=== PATIENT | male | born 1980 | race Caucasian/White ===

== ENCOUNTER 2017-09-28 14:28 | Outpatient (CLI) | payer MEDICARE | END 2017-09-28 14:29 | disposition home or self-care (01) | LOC: BICRAD 14:28 | PROVIDERS: ATTEND Physician Assistant Medical | DX: M79.671 Pain in right foot (principal) ==

== ENCOUNTER 2018-10-31 12:45 | Emergency (ER) | payer MEDICARE ==
--- NOTE | 2018-10-31 13:25 | CT ---
CT BRAIN WITHOUT CONTRAST: Date: 10/31/18 HISTORY: Level I stroke alert. Right-sided facial paralysis. FINDINGS: No evidence of infarct, hemorrhage, midline shift, or abnormal extra-axial fluid collections are seen . There is asymmetric prominence of the right lateral ventricle compared to the left. The basilar cis terns are patent. The bony calvarium is intact. The visualized paranasal sinuses and mastoid air cell s are well aerated. IMPRESSION: No CT evidence of acute intracranial process. Discussed over the phone with ER physician, Dr. Rhys Borrero, at 1303 hours. CODE CR. POS: [facility]
== END 2018-10-31 13:23 | disposition home or self-care (01) ==
LOC: ERS 12:45
DX: G51.0 Bell's palsy (principal); J45.909 Unspecified asthma, uncomplicated; Z79.899 Other long term (current) drug therapy
CPT/HCPCS: 36416; 70450

== ENCOUNTER 2019-05-14 11:48 | Emergency (ER) | payer MEDICARE ==
[2019-05-14] MEDS ORDERED: Adacel (T-DAP) 0.5 ML SYRINGE ONE (12:28)
--- NOTE | 2019-05-14 13:29 | RAD ---
RIGHT HAND 3 VIEWS: HISTORY: Dog bite. FINDINGS: There is a fracture which his essentially nondisplaced involving the more proximal aspect of the shaf t of the proximal phalanx of the middle finger. The fracture has a slightly impacted component which is probably the bite injury and fracture lines extend from the base through the proximal portion of the shaft. IMPRESSION: Proximal phalanx middle finger fracture. POS: [facility]
[2019-05-14] MEDS ORDERED: Bacitracin 1 PK ONE (14:14)
== END 2019-05-14 14:29 | disposition home or self-care (01) ==
LOC: ERS 11:48
DX: S62.642B Nondisplaced fracture of proximal phalanx of right middle finger, initial encounter for open fracture (principal); G80.9 Cerebral palsy, unspecified; F90.9 Attention-deficit hyperactivity disorder, unspecified type; Z79.899 Other long term (current) drug therapy; W54.0XXA Bitten by dog, initial encounter
CPT/HCPCS: 29130; 90471; 90715

== ENCOUNTER 2023-01-09 08:45 | Outpatient (CLI) | payer MEDICARE ==
[2023-01-09] MEDS ORDERED: Iopamidol 370 76% 100 ML VIAL ONE (09:57)
== END 2023-01-09 08:46 | disposition home or self-care (01) ==
LOC: CT 08:45
PROVIDERS: ATTEND Physician Assistant Medical
DX: K52.9 Noninfective gastroenteritis and colitis, unspecified (principal); K38.8 Other specified diseases of appendix
CPT/HCPCS: 74177; Q9967